=== PATIENT | male | born 1980 | race Caucasian/White ===

== ENCOUNTER → 2022-06-20 | Day surgery (SDC) | payer OTHER ==
[~2022-06-20] MED LIST: ESCITALOPRAM OX10 MG PO
== END | disposition home or self-care (01) ==
LOC: OR 08:29
DX: K62.5 Hemorrhage of anus and rectum (principal); K52.9 Noninfective gastroenteritis and colitis, unspecified; K57.30 Diverticulosis of large intestine without perforation or abscess without bleeding; K51.30 Ulcerative (chronic) rectosigmoiditis without complications; K64.4 Residual hemorrhoidal skin tags; F41.9 Anxiety disorder, unspecified; Z79.899 Other long term (current) drug therapy
CPT/HCPCS: 82962; J2704